=== PATIENT | female | born 1985 | race Caucasian/White ===

== ENCOUNTER → 2019-05-26 | Outpatient (CLI) | payer OTHER, MEDICARE ==
[~2019-05-26] MED LIST: ACETAMINOPHEN1 EAC2 PO; BENADRYL25 MG PO; CHANTIX0.5 MG PO; CHANTIX1 MG PO; CIPROFLOXACIN500 M1 PO; CLEOCIN HCL300 MG PO; CYMBALTA30 MG PO; CYMBALTA60 MG PO; DEPO-PROVE150 MG/11 IM; ENBREL 25 MG KI25 M1 SC; FLONASE 0.05%50 MCG NASAL; FOLIC ACID1 MG PO; HIZENTRA1 GM/5 ML IV; HUMIRA40 MG/0.8 SQ; HYDROCODON-ACE1 EAC5 PO; HYDROCODON-ACE1 EAC7 PO; HYDROXYCHLOROQ200 M1 PO; LEVAQUIN 500 M500 MG PO; LYRICA 75 MG CA75 MG PO; LYRICA100 MG; LYRICA150 MG PO; METHADONE HCL 110 M1 PO; METHOTREXA1 GM/40 M1; NORCO 5-325 TA1 EACH PO; OXYCODONE HCL 55 MG PO; OXYCONTIN10 M1; PENICILLIN V P500 MG PO; PREDNISONE 20 M20 MG PO; PREDNISONE 5 MG5 M1 PO; PRENATAL; REMICADE 1100 MG/VIA; ZPAK
--- NOTE | 2019-05-27 09:17 | EKG ---
[place] [address] ELECTROCARDIOGRAM REPORT Name: DOBSONTABITHA Room: [facility]#: [id number] Admission: 05/26/19 Attend Phys: Marcos Sylvester MD Discharge: Date of : 81 Date of Service: 05/26/19 1509 Report #: [id number] THIS REPORT FOR: //name// [facility] Test Date: 2019-05-26 Test Time: 15:09:39 Pat Name: TABITHA DOBSON Department: Room: Gender: Clinical Assistant Professor: : 1985 Requested By: Marcos Sylvester Order Number: [id number] Reading MD: Allen Faustin Measurements Intervals [place] Rate: 89 P: 52 DE: 164 QRS: 41 QRSD: 91 T: 42 QT: 355 QTc: 432 Interpretive Statements Sinus rhythm Compared to ECG 11/14/2013 20:18:52 Sinus tachycardia no longer present Electronically Signed On 05-27-2019 9:16:46 [employer] by Allen Faustin [email or web address] <ELECTRONICALLY SIGNED> By: Allen Faustin MD, [facility] 05/27/19 0916 1509 1509 Allen Faustin MD, FACC /EPI
== END ==
LOC: M.CRD 14:55
DX: F11.20 Opioid dependence, uncomplicated (principal)